=== PATIENT | female | born 1955 ===

== ENCOUNTER 2021-01-08 11:30 | Day surgery (SDC) | payer OTHER | END 2021-01-08 18:00 | disposition home or self-care (01) | LOC: AMB-ENDOS 11:30 | PROVIDERS: ATTEND Surgery | DX: D12.2 Benign neoplasm of ascending colon (principal); K64.8 Other hemorrhoids; Z20.822 Contact with and (suspected) exposure to COVID-19 ==

== ENCOUNTER 2022-01-08 11:00 | Inpatient (IN) | payer OTHER ==
[~2022-01-08] VITALS: Ht 149.9 cm; Wt 69.4 kg
[2022-01-08] MEDS ORDERED: GLIMEPIRIDE1 M1 PO (14:52)
[2022-01-08] MEDS ORDERED: METFORMIN HCL1000 M2 PO (14:53)
[2022-01-08] MEDS ORDERED: DIOVAN320 MG PO (14:53)
[2022-01-08] MEDS ORDERED: SYNTHROID175 MCG PO (14:54)
[2022-01-08] MEDS ORDERED: TENORMIN50 M1 PO (14:54)
[2022-01-08] MEDS ORDERED: BUSPIRONE HCL15 MG PO (14:54)
[2022-01-08] MEDS ORDERED: NORVASC5 MG PO (14:55)
[2022-01-08] MEDS ORDERED: AMBIEN10 MG PO (14:55)
[2022-01-08] MEDS ORDERED: FENOFIBRATE160 MG PO (14:55)
[2022-01-08] MEDS ORDERED: MAXIMUM D3325 MCG PO (14:56)
[2022-01-17] MEDS ORDERED: ELIQUIS2.5 MG PO (08:07)
[2022-01-17] MEDS ORDERED: DUI500 PO (08:07)
[2022-01-17] MEDS ORDERED: PERCOCET 5-3251 EACH PO (08:07)
== END 2022-01-17 18:52 | DRG 470 ==
LOC: O/R 01-14 06:14 → SURG 01-14 06:14 → SURH 01-14 11:00 → SURG 01-14 17:11
PROVIDERS: ADMIT Orthopaedic Surgery; ATTEND Orthopaedic Surgery
PROC: 0SRD0J9 Replacement of Left Knee Joint with Synthetic Substitute, Cemented, Open Approach (ICD-10-PCS; principal; 2022-01-14 13:30)
PROC: 30233N1 Transfusion of Nonautologous Red Blood Cells into Peripheral Vein, Percutaneous Approach (ICD-10-PCS; 2022-01-17)
DX: M17.12 Unilateral primary osteoarthritis, left knee (principal); D62 Acute posthemorrhagic anemia; M22.12 Recurrent subluxation of patella, left knee; E11.9 Type 2 diabetes mellitus without complications; I10 Essential (primary) hypertension